=== PATIENT | female | born 1935 | race Caucasian/White ===

== ENCOUNTER 2024-06-29 17:09 | Inpatient (IN) | payer MEDICARE, OTHER ==
[~2024-06-29] VITALS: Ht 162.6 cm; Wt 68.0 kg
[2024-06-29 18:46] LABS: BASOPHILS # (AUTO) 0.1 K/UL (0.0-0.2); BASOPHILS % (AUTO) 0.9 % (0.0-2.0); EOSINOPHILS # (AUTO) 0.2 K/uL (0.0-0.7); EOSINOPHILS % (AUTO) 3.5 % (0.0-7.0); HEMATOCRIT 33.2 % (31.2-41.9); HEMOGLOBIN 10.9 g/dL (10.9-14.3); LYMPHOCYTES # (AUTO) 2.1 K/uL (0.8-4.8); LYMPHOCYTES % (AUTO) 36.2 % (20.5-51.5); MEAN CORPUSCULAR HEMOGLOBIN 28.8 uug (24.7-32.8); MEAN CORPUSCULAR HGB CONC 33 g/dL (32.3-35.6); MEAN CORPUSCULAR VOLUME 87.4 fL (75.5-95.3); MONOCYTES # (AUTO) 0.5 K/uL (0.1-1.30); MONOCYTES % (AUTO) 8.4 % (0.0-11.0); PLATELET COUNT (AUTO) 263 K/uL (179-408); RED CELL DISTRIBUTION WIDTH 15.2 % (12.3-17.7); WHITE BLOOD COUNT (AUTO) 5.9 K/uL (3.8-11.8)
[2024-06-29 18:57] LABS: *BILIRUBIN,URIN NEGATIVE (NEGATIVE); *BLOOD, URINE 1+ (NEGATIVE); *CLARITY,URINE SLIGHTLY CLOUDY (CLEAR); *COLOR,URINE LIGHT YELLOW (YELLOW); *KETONES,URINE NEGATIVE (NEGATIVE); *PROTEIN,URINE 1+ (NEGATIVE); *UROBILINOGEN,URINE 0.2 E.U./dl (NORMAL); LEUKOCYTE ESTERASE ,URINE 3+ (NEGATIVE); NITRITE, URINE POSITIVE (NEGATIVE); PH,URINE 6.5 (5.0-8.0); UGLUCOSE 2+ (NEGATIVE)
[2024-06-29 18:57] LABS: CALCIUM 9.4 mg/dL (8.5-10.1); CARBON DIOXIDE 25 mmol/L (21-32); CHLORIDE 111 mmol/L (98-107); CREATININE 1.3 mg/dL (0.6-1.3); DIFFERENTIAL COMMENT 1; GLUCOSE 119 mg/dL (74-106); POTASSIUM 3.9 mmol/L (3.5-5.1); SODIUM SERUM 145 mmol/L (136-145); UREA NITROGEN, BLOOD 29 mg/dL (7-18)
[2024-06-29 18:58] LABS: AMMONIA 10 umol/L (11-32)
[2024-06-29 19:02] LABS: ETHANOL < 3 MG/DL (0-10)
[2024-06-29 19:08] LABS: *AMPHETAMINE, URINE NEGATIVE (NEGATIVE); *BARBITURATE, URINE NEGATIVE (NEGATIVE); *BENZODIAZEPINE, URINE NEGATIVE (NEGATIVE); *CANNABINOID, URINE NEGATIVE (NEGATIVE); *COCCAINE, URINE NEGATIVE (NEGATIVE); *OPIATE, URINE NEGATIVE (NEGATIVE); *PHENCYCLIDINE SCREEN,URINE NEGATIVE (NEGATIVE); FENTANYL, URINE NEGATIVE (NEGATIVE)
[2024-06-29 19:11] LABS: WBC,URINE 80-100 /HPF (0-3)
[2024-06-29 19:11] LABS: THYROID STIMULATING HORMONE 5.574 mIU/mL (0.358-3.740)
[2024-06-29 19:12] LABS: ALANINE AMINOTRANSFERASE 22 U/L (14-59); ALBUMIN 3.2 g/dL (3.4-5.0); ALKALINE PHOSPHATASE 75 U/L (50-136); ASPARTATE AMINOTRANSFERASE 16 U/L (15-37); BILIRUBIN,DIRECT 0.1 mg/dL (0.0-0.2); BILIRUBIN,TOTAL 0.3 mg/dL (0.2-1.0); TOTAL PROTEIN, SERUM 7.1 g/dL (6.4-8.2)
[2024-06-29 19:12] LABS: BACTERIA,URINE MODERATE /HPF (NONE SEEN); SQUAMOUS EPITHELIAL CELL,UR FEW /HPF (NONE SEEN)
[2024-06-29 19:14] LABS: ACETAMINOPHEN < 2.0 ug/mL (10-30)
[2024-06-30] MEDS ORDERED: CEFTRIAXONE /D5W 50ML IVPB **ER PYXIS IV ONE (00:22)
[2024-06-30] MEDS: CEFTRIAXONE 1 G in IV DEXTROSE 5% 50 ML IV ONE (00:38)
[2024-06-30] MEDS ORDERED: REMEDY ESSENTIAL ZINC PASTE 113 GM TP PRN (05:00)
[2024-06-30] MEDS ORDERED: MAGNESIUM HYDROXIDE 30 ML LIQUID UDC PO PRN (05:00)
[2024-06-30] MEDS ORDERED: ONDANSETRON 4 MG/2 ML VIAL IV PRN (05:00)
[2024-06-30 06:44] VITALS: BP 175/75; TEMP 97.5; O2SAT 98
[2024-06-30 07:30] LABS: BASOPHILS % (AUTO) 0.9 % (0.0-2.0); EOSINOPHILS # (AUTO) 0.2 K/uL (0.0-0.7); EOSINOPHILS % (AUTO) 3.5 % (0.0-7.0); HEMATOCRIT 35.4 % (31.2-41.9); HEMOGLOBIN 11.5 g/dL (10.9-14.3); LYMPHOCYTES # (AUTO) 1.5 K/uL (0.8-4.8); LYMPHOCYTES % (AUTO) 28.6 % (20.5-51.5); MEAN CORPUSCULAR HEMOGLOBIN 28.8 uug (24.7-32.8); MEAN CORPUSCULAR HGB CONC 32 g/dL (32.3-35.6); MEAN CORPUSCULAR VOLUME 88.8 fL (75.5-95.3); MONOCYTES # (AUTO) 0.4 K/uL (0.1-1.30); MONOCYTES % (AUTO) 7.4 % (0.0-11.0); NEUTROPHILS # (AUTO) 3.1 K/uL (1.8-8.9); NEUTROPHILS % (AUTO) 59.6 % (38.5-71.5); PLATELET COUNT (AUTO) 216 K/uL (179-408); RED BLOOD CELL COUNT(AUTO) 3.99 MIL/uL (3.63-4.92); RED CELL DISTRIBUTION WIDTH 15.5 % (12.3-17.7); WHITE BLOOD COUNT (AUTO) 5.1 K/uL (3.8-11.8)
[2024-06-30 07:32] LABS: DIFFERENTIAL COMMENT 1
[2024-06-30 07:46] LABS: CALCIUM 9.3 mg/dL (8.5-10.1); CARBON DIOXIDE 25 mmol/L (21-32); CHLORIDE 110 mmol/L (98-107); CREATININE 1.1 mg/dL (0.6-1.3); GLUCOSE 102 mg/dL (74-106); POTASSIUM 3.8 mmol/L (3.5-5.1); SODIUM SERUM 144 mmol/L (136-145); UREA NITROGEN, BLOOD 27 mg/dL (7-18)
[2024-06-30 08:51] VITALS: BP 174/76; TEMP 97.9; O2SAT 98
[2024-06-30] MEDS: PANTOPRAZOLE SODIUM 40 MG VIAL IV SCH (09:00)
[2024-06-30] MEDS ORDERED: hydrALAZINE HCL 25 MG TABLET PO PRN (09:30)
[2024-06-30] MEDS: ACETAMINOPHEN 325 MG TABLET PO PRN (09:37)
[2024-06-30 11:11] VITALS: BP 150/85; TEMP 98.2; O2SAT 96
[2024-06-30 16:05] VITALS: BP 123/53; TEMP 97.8; O2SAT 98
[2024-06-30] MEDS ORDERED: LINA5TAB PO (16:19)
[2024-06-30] MEDS ORDERED: GUAI-789 PO (16:19)
[2024-06-30] MEDS ORDERED: TRIA15CR4 TP (16:20)
[2024-06-30] MEDS ORDERED: DICL100G31 TOP (16:22)
[2024-06-30] MEDS ORDERED: OLOP5DRO15 EACHEYE (16:22)
[2024-06-30] MEDS ORDERED: CETI1DRO EACHEYE (16:29)
[2024-06-30] MEDS ORDERED: FINE10TA PO (16:33)
[2024-06-30] MEDS ORDERED: MEMA5TAB42 PO (16:33)
[2024-06-30] MEDS ORDERED: ICOS1CAP PO (16:33)
[2024-06-30] MEDS ORDERED: LEVO88TA5 PO (16:37)
[2024-06-30] MEDS ORDERED: IRBE150T25 PO (16:37)
[2024-06-30] MEDS ORDERED: DAPA10TA PO (16:38)
[2024-06-30] MEDS ORDERED: GLIM1TAB PO (16:44)
[2024-06-30] MEDS ORDERED: MIRT-93 PO (16:44)
[2024-06-30] MEDS ORDERED: DEXL30CA3 PO (16:45)
[2024-06-30] MEDS ORDERED: PRAV40TA3 PO (16:45)
[2024-06-30] MEDS ORDERED: GUAIFENESIN SUGAR FREE 100 MG/5 ML UDC PO PRN (17:15)
[2024-06-30 19:00] VITALS: BP 116/59; TEMP 97.9; O2SAT 99
[2024-06-30] MEDS: ATORVASTATIN 10 MG TABLET PO SCH (19:11)
[2024-06-30] MEDS ORDERED: Icosapent Ethyl (Vascepa) 1 CAP) PO SCH (21:00)
[2024-06-30] MEDS: CEFTRIAXONE 1 G in IV DEXTROSE 5% 50 ML IV SCH (23:10)
[2024-07-01 06:00] VITALS: BP 112/73; TEMP 98.1; O2SAT 97
[2024-07-01 06:58] LABS: BASOPHILS # (AUTO) 0.1 K/UL (0.0-0.2); BASOPHILS % (AUTO) 1.1 % (0.0-2.0); EOSINOPHILS # (AUTO) 0.1 K/uL (0.0-0.7); EOSINOPHILS % (AUTO) 2.9 % (0.0-7.0); HEMATOCRIT 37.3 % (31.2-41.9); HEMOGLOBIN 12.6 g/dL (10.9-14.3); LYMPHOCYTES # (AUTO) 1.5 K/uL (0.8-4.8); LYMPHOCYTES % (AUTO) 30.6 % (20.5-51.5); MEAN CORPUSCULAR HEMOGLOBIN 29.4 uug (24.7-32.8); MEAN CORPUSCULAR HGB CONC 34 g/dL (32.3-35.6); MEAN CORPUSCULAR VOLUME 86.8 fL (75.5-95.3); MONOCYTES # (AUTO) 0.3 K/uL (0.1-1.30); MONOCYTES % (AUTO) 6.3 % (0.0-11.0); NEUTROPHILS # (AUTO) 2.8 K/uL (1.8-8.9); NEUTROPHILS % (AUTO) 59.1 % (38.5-71.5); PLATELET COUNT (AUTO) 327 K/uL (179-408); RED BLOOD CELL COUNT(AUTO) 4.29 MIL/uL (3.63-4.92); RED CELL DISTRIBUTION WIDTH 15.1 % (12.3-17.7); WHITE BLOOD COUNT (AUTO) 4.7 K/uL (3.8-11.8)
[2024-07-01 07:05] LABS: DIFFERENTIAL COMMENT 1
[2024-07-01 07:11] LABS: CARBON DIOXIDE 28 mmol/L (21-32); CHLORIDE 105 mmol/L (98-107); CREATININE 1.2 mg/dL (0.6-1.3); GLUCOSE 178 mg/dL (74-106); POTASSIUM 3.9 mmol/L (3.5-5.1); SODIUM SERUM 143 mmol/L (136-145); UREA NITROGEN, BLOOD 24 mg/dL (7-18)
[2024-07-01] MEDS: LINAGLIPTIN 5 MG TABLET PO SCH (08:51)
[2024-07-01] MEDS: MEMANTINE HCL 5 MG TABLET PO SCH (08:52)
[2024-07-01] MEDS: LOSARTAN POTASSIUM 50 MG TABLET PO SCH (08:52)
[2024-07-01] MEDS: DAPAGLIFLOZIN PROPANEDIOL 10 MG TABLET PO SCH (08:54)
[2024-07-01] MEDS: TRIAMCINOLONE ACET 0.1% CREAM 15 GM TUBE TP SCH (08:55)
[2024-07-01] MEDS ORDERED: FINERENONE PO SCH (09:00)
[2024-07-01] MEDS ORDERED: GLIMEPIRIDE PO SCH (09:00)
[2024-07-01] MEDS ORDERED: DICLOFENAC SODIUM TOP SCH (09:00)
[2024-07-01] MEDS: LEVOTHYROXINE SODIUM 88 MCG TABLET PO SCH (09:00)
[2024-07-01] MEDS: OLOPATADINE 0.1% OPHT DROP 5 ML BOTTLE EACHEYE SCH (09:00)
[2024-07-01] MEDS ORDERED: MIRTAZAPINE 15 MG TABLET PO SCH (09:00)
[2024-07-01] MEDS ORDERED: DEXLANSOPRAZOLE PO SCH (09:00)
[2024-07-01] MEDS: GLIMEPIRIDE 2 MG TABLET PO SCH (10:29)
[2024-07-01] MEDS: MIRTAZAPINE 15 MG TABLET PO SCH ×2 (10:29→20:58)
[2024-07-01 11:11] VITALS: BP 114/63; TEMP 98.5; O2SAT 100
[2024-07-01 15:31] VITALS: BP 138/55; TEMP 97.7; O2SAT 99
[2024-07-01 19:10] VITALS: BP 139/49; TEMP 98.3; O2SAT 98
[2024-07-01] MEDS: ATORVASTATIN 10 MG TABLET PO SCH (20:58)
[2024-07-02] MEDS: PANTOPRAZOLE SODIUM 40 MG TABLET.DR PO SCH (06:09)
[2024-07-02 06:26] VITALS: BP 129/75; TEMP 97.7; O2SAT 96
[2024-07-02 06:48] LABS: BASOPHILS # (AUTO) 0.1 K/UL (0.0-0.2); EOSINOPHILS # (AUTO) 0.2 K/uL (0.0-0.7); EOSINOPHILS % (AUTO) 3.4 % (0.0-7.0); HEMATOCRIT 37.9 % (31.2-41.9); HEMOGLOBIN 12.6 g/dL (10.9-14.3); LYMPHOCYTES # (AUTO) 1.9 K/uL (0.8-4.8); LYMPHOCYTES % (AUTO) 32.7 % (20.5-51.5); MEAN CORPUSCULAR HEMOGLOBIN 29.1 uug (24.7-32.8); MEAN CORPUSCULAR HGB CONC 33 g/dL (32.3-35.6); MEAN CORPUSCULAR VOLUME 87.5 fL (75.5-95.3); MONOCYTES # (AUTO) 0.4 K/uL (0.1-1.30); MONOCYTES % (AUTO) 7.6 % (0.0-11.0); NEUTROPHILS # (AUTO) 3.3 K/uL (1.8-8.9); NEUTROPHILS % (AUTO) 55.3 % (38.5-71.5); PLATELET COUNT (AUTO) 318 K/uL (179-408); RED BLOOD CELL COUNT(AUTO) 4.33 MIL/uL (3.63-4.92); WHITE BLOOD COUNT (AUTO) 5.9 K/uL (3.8-11.8)
[2024-07-02 07:01] LABS: DIFFERENTIAL COMMENT 1
[2024-07-02 07:05] LABS: CALCIUM 9.4 mg/dL (8.5-10.1); CARBON DIOXIDE 28 mmol/L (21-32); CHLORIDE 106 mmol/L (98-107); CREATININE 1.3 mg/dL (0.6-1.3); GLUCOSE 125 mg/dL (74-106); MAGNESIUM 1.7 mg/dL (1.8-2.4); PHOSPHOROUS 3.5 mg/dL (2.5-4.9); SODIUM SERUM 144 mmol/L (136-145); UREA NITROGEN, BLOOD 23 mg/dL (7-18)
[2024-07-02] MEDS: MAGNESIUM OXIDE 400 MG TABLET PO ONE (10:47)
[2024-07-02 11:35] VITALS: BP 103/54; TEMP 98.7; O2SAT 96
[2024-07-02 16:00] VITALS: BP 106/47; TEMP 98.8; O2SAT 99
[2024-07-02] MEDS: DICLOFENAC TOP SCH (16:45)
[2024-07-02] MEDS: VASCEPA PO SCH (16:45)
[2024-07-02] MEDS: [UNRECOGNIZED DRUG - OTHER] TOP SCH (16:45)
[2024-07-02] MEDS: MUPIROCIN 2% OINT 22 GM TUBE NS SCH (21:00)
[2024-07-02 21:23] VITALS: BP 137/62; TEMP 97.7; O2SAT 99
[2024-07-03 06:56] VITALS: BP 128/59; TEMP 97.7; O2SAT 97
[2024-07-03 06:59] LABS: BASOPHILS % (AUTO) 1.1 % (0.0-2.0); EOSINOPHILS # (AUTO) 0.2 K/uL (0.0-0.7); EOSINOPHILS % (AUTO) 4.1 % (0.0-7.0); HEMATOCRIT 33.4 % (31.2-41.9); HEMOGLOBIN 11.1 g/dL (10.9-14.3); LYMPHOCYTES # (AUTO) 1.5 K/uL (0.8-4.8); LYMPHOCYTES % (AUTO) 36.1 % (20.5-51.5); MEAN CORPUSCULAR HEMOGLOBIN 29.1 uug (24.7-32.8); MEAN CORPUSCULAR HGB CONC 33 g/dL (32.3-35.6); MEAN CORPUSCULAR VOLUME 87.2 fL (75.5-95.3); MONOCYTES # (AUTO) 0.4 K/uL (0.1-1.30); MONOCYTES % (AUTO) 9.2 % (0.0-11.0); NEUTROPHILS # (AUTO) 2.1 K/uL (1.8-8.9); NEUTROPHILS % (AUTO) 49.5 % (38.5-71.5); PLATELET COUNT (AUTO) 253 K/uL (179-408); RED BLOOD CELL COUNT(AUTO) 3.83 MIL/uL (3.63-4.92); WHITE BLOOD COUNT (AUTO) 4.2 K/uL (3.8-11.8)
[2024-07-03 07:06] LABS: CALCIUM 9.6 mg/dL (8.5-10.1); CARBON DIOXIDE 25 mmol/L (21-32); CHLORIDE 113 mmol/L (98-107); CREATININE 1.3 mg/dL (0.6-1.3); GLUCOSE 94 mg/dL (74-106); POTASSIUM 4.1 mmol/L (3.5-5.1); SODIUM SERUM 146 mmol/L (136-145); UREA NITROGEN, BLOOD 29 mg/dL (7-18)
[2024-07-03 07:19] LABS: DIFFERENTIAL COMMENT 1
[2024-07-03] MEDS: KERENDIA 10 MG PO SCH (10:16)
[2024-07-03 11:37] VITALS: BP 114/57; TEMP 98; O2SAT 98
[2024-07-03 15:53] VITALS: BP 125/53; TEMP 97.9; O2SAT 99
[2024-07-03] MEDS: CEphaleXIN 500 MG CAPSULE PO SCH (21:01)
[2024-07-03] MEDS: QUETIAPINE FUMARATE 25 MG TABLET PO SCH (21:01)
[2024-07-03 21:30] VITALS: BP 103/48; TEMP 98.5; O2SAT 99
[2024-07-04 07:16] VITALS: BP 156/65; TEMP 97.4; O2SAT 100
[2024-07-04] MEDS ORDERED: MIRT-93 PO (10:28)
[2024-07-04] MEDS ORDERED: CEPH500C2 PO (10:28)
[2024-07-04] MEDS ORDERED: HYDR-894 PO (10:28)
[2024-07-04] MEDS ORDERED: PANT40TA49 PO (10:28)
[2024-07-04] MEDS ORDERED: QUET25TA36 PO (10:28)
[2024-07-04] MEDS ORDERED: GLIM2TAB PO (10:28)
[2024-07-04] MEDS ORDERED: MUPI22OI2 NS (10:28)
[2024-07-04] MEDS ORDERED: GUAI100S9 PO (10:28)
[2024-07-04 11:13] VITALS: BP 145/71; TEMP 98.4; O2SAT 100
[2024-07-04 15:05] VITALS: BP 117/62; TEMP 98.3; O2SAT 96
[2024-07-04 16:40] VITALS: BP 117/62
== END 2024-07-04 17:39 | DRG 689 ==
LOC: ER 17:37 → UNDOADMIN 06-30 05:53 → MEDSURG3 06-30 05:53
PROVIDERS: ATTEND Nurse Practitioner Family
DX: N39.0 Urinary tract infection, site not specified (principal); G93.41 Metabolic encephalopathy; E44.1 Mild protein-calorie malnutrition; F03.92 Unspecified dementia, unspecified severity, with psychotic disturbance; F03.93 Unspecified dementia, unspecified severity, with mood disturbance; S00.12XA Contusion of left eyelid and periocular area, initial encounter; W19.XXXA Unspecified fall, initial encounter; Y92.89 Other specified places as the place of occurrence of the external cause; E86.0 Dehydration; F32.9 Major depressive disorder, single episode, unspecified; R29.6 Repeated falls; E03.9 Hypothyroidism, unspecified; E78.5 Hyperlipidemia, unspecified; E88.09 Other disorders of plasma-protein metabolism, not elsewhere classified; R79.89 Other specified abnormal findings of blood chemistry; Z91.148 Patient's other noncompliance with medication regimen for other reason; Z93.6 Other artificial openings of urinary tract status; I10 Essential (primary) hypertension; E11.9 Type 2 diabetes mellitus without complications; Z79.84 Long term (current) use of oral hypoglycemic drugs; Z79.899 Other long term (current) drug therapy; Z90.12 Acquired absence of left breast and nipple; Z85.038 Personal history of other malignant neoplasm of large intestine
CPT/HCPCS: 36415; 70450; 70486; 71045; 72125; 83605; 83735; 84100; 84443; 84484; 85025; 85730; 87040; 87086; A4663; G0378; G0480; J0696; J2470

== ENCOUNTER 2024-07-21 16:52 | Inpatient (IN) | payer MEDICARE, OTHER ==
[~2024-07-21] VITALS: Ht 162.6 cm; Wt 59.0 kg
[~2024-07-21 16:52] MED LIST: CEPH500C2 PO; CETI1DRO EACHEYE; DAPA10TA PO; DEXL30CA3 PO; DICL100G31 TOP; FINE10TA PO; GLIM1TAB PO; GLIM2TAB PO; GUAI100S9 PO; HYDR-894 PO; ICOS1CAP PO; IRBE150T25 PO; LEVO88TA5 PO; LINA5TAB PO; MEMA5TAB42 PO; MIRT-93 PO; MUPI22OI2 NS; OLOP5DRO15 EACHEYE; PANT40TA49 PO; PRAV40TA3 PO; QUET25TA36 PO
[2024-07-21] MEDS ORDERED: diphenhydrAMINE 50 MG/1 ML VIAL IV ONE (17:15)
[2024-07-21] MEDS ORDERED: HALOPERIDOL LACTATE 5 MG/1 ML VIAL IV ONE (17:15)
[2024-07-21] MEDS ORDERED: LORAZEPAM 2 MG/1 ML VIAL IV ONE (17:15)
[2024-07-21] MEDS ORDERED: diphenhydrAMINE 50 MG/1 ML VIAL ONE (17:16)
[2024-07-21] MEDS ORDERED: LORAZEPAM 2 MG/1 ML VIAL ONE (17:17)
[2024-07-21] MEDS ORDERED: HALOPERIDOL LACTATE 5 MG/1 ML VIAL ONE (17:17)
[2024-07-21] MEDS: LORAZEPAM 2 MG/1 ML VIAL IM ONE (17:26)
[2024-07-21] MEDS: diphenhydrAMINE 50 MG/1 ML VIAL IM ONE (17:26)
[2024-07-21] MEDS: HALOPERIDOL LACTATE 5 MG/1 ML VIAL IM ONE (17:26)
[2024-07-21 17:30] LABS: BASOPHILS % (AUTO) 0.2 % (0.0-2.0); EOSINOPHILS % (AUTO) 0.1 % (0.0-7.0); HEMOGLOBIN 11.5 g/dL (10.9-14.3); LYMPHOCYTES # (AUTO) 0.3 K/uL (0.8-4.8); LYMPHOCYTES % (AUTO) 2.7 % (20.5-51.5); MEAN CORPUSCULAR HEMOGLOBIN 28.7 uug (24.7-32.8); MEAN CORPUSCULAR HGB CONC 33 g/dL (32.3-35.6); MONOCYTES # (AUTO) 0.7 K/uL (0.1-1.30); MONOCYTES % (AUTO) 6.5 % (0.0-11.0); NEUTROPHILS % (AUTO) 90.5 % (38.5-71.5); PLATELET COUNT (AUTO) 190 K/uL (179-408); RED BLOOD CELL COUNT(AUTO) 4.02 MIL/uL (3.63-4.92); RED CELL DISTRIBUTION WIDTH 15.5 % (12.3-17.7)
[2024-07-21 17:31] LABS: DIFFERENTIAL COMMENT 1
[2024-07-21 17:41] LABS: CALCIUM 9.5 mg/dL (8.5-10.1); CARBON DIOXIDE 24 mmol/L (21-32); CHLORIDE 107 mmol/L (98-107); CREATININE 2.1 mg/dL (0.6-1.3); GLUCOSE 97 mg/dL (74-106); POTASSIUM 3.7 mmol/L (3.5-5.1); SODIUM SERUM 144 mmol/L (136-145); UREA NITROGEN, BLOOD 57 mg/dL (7-18)
[2024-07-21 17:43] LABS: AMMONIA < 10 umol/L (11-32)
[2024-07-21 17:48] LABS: ETHANOL < 3 MG/DL (0-10)
[2024-07-21 17:55] LABS: THYROID STIMULATING HORMONE 4.547 mIU/mL (0.358-3.740)
[2024-07-21 17:59] LABS: ALANINE AMINOTRANSFERASE 49 U/L (14-59); ALBUMIN 2.5 g/dL (3.4-5.0); ALKALINE PHOSPHATASE 253 U/L (50-136); ASPARTATE AMINOTRANSFERASE 69 U/L (15-37); BILIRUBIN,DIRECT 0.1 mg/dL (0.0-0.2); BILIRUBIN,TOTAL 0.4 mg/dL (0.2-1.0); TOTAL PROTEIN, SERUM 7.7 g/dL (6.4-8.2)
[2024-07-21 18:00] LABS: ACETAMINOPHEN < 2.0 ug/mL (10-30)
[2024-07-21] MEDS ORDERED: CEFTRIAXONE /D5W 50ML IVPB **ER PYXIS IV ONE (18:04)
[2024-07-21 18:10] LABS: *BILIRUBIN,URIN NEGATIVE (NEGATIVE); *BLOOD, URINE 2+ (NEGATIVE); *KETONES,URINE NEGATIVE (NEGATIVE); *PROTEIN,URINE 2+ (NEGATIVE); *UROBILINOGEN,URINE 0.2 E.U./dl (NORMAL); LEUKOCYTE ESTERASE ,URINE 1+ (NEGATIVE); NITRITE, URINE POSITIVE (NEGATIVE); UGLUCOSE TRACE (NEGATIVE)
[2024-07-21 18:11] LABS: *CLARITY,URINE SLIGHTLY CLOUDY (CLEAR); *COLOR,URINE LIGHT YELLOW (YELLOW)
[2024-07-21 18:18] LABS: BACTERIA,URINE MANY /HPF (NONE SEEN); SQUAMOUS EPITHELIAL CELL,UR FEW /HPF (NONE SEEN)
[2024-07-21] MEDS: CEFTRIAXONE 1 G in IV DEXTROSE 5% 50 ML IV ONE (18:20)
[2024-07-21 18:21] LABS: *AMPHETAMINE, URINE NEGATIVE (NEGATIVE); *BARBITURATE, URINE NEGATIVE (NEGATIVE); *BENZODIAZEPINE, URINE NEGATIVE (NEGATIVE); *CANNABINOID, URINE NEGATIVE (NEGATIVE); *COCCAINE, URINE NEGATIVE (NEGATIVE); *OPIATE, URINE NEGATIVE (NEGATIVE); *PHENCYCLIDINE SCREEN,URINE NEGATIVE (NEGATIVE); FENTANYL, URINE NEGATIVE (NEGATIVE)
[2024-07-21] MEDS: IV NORMAL SALINE 1000 ML BAG IV ONE (18:44)
[2024-07-21] MEDS ORDERED: DEXTROSE 50% 50 ML DISP.SYRIN ONE (19:23)
[2024-07-21] MEDS ORDERED: IV 10% DEXTROSE 1,000 ML IV ONE ×2 (19:23→23:17)
[2024-07-21] MEDS: DEXTROSE 50% 50 ML DISP.SYRIN IV ONE ×2 (19:26→23:56)
[2024-07-21] MEDS ORDERED: MISCELLANEOUS MED XX ONE (19:30)
[2024-07-21] MEDS ORDERED: MAGNESIUM HYDROXIDE 30 ML LIQUID UDC PO PRN (19:45)
[2024-07-21] MEDS ORDERED: IV D5/ 0.9% NACL 1,000 ML IV PRN (19:45)
[2024-07-21] MEDS ORDERED: IV 10% DEXTROSE 1,000 ML IV SCH (21:00)
[2024-07-21] MEDS: HEPARIN SODIUM,PORCINE 5,000 UNITS/ML VIAL SQ SCH (21:00)
[2024-07-21 22:57] LABS: CALCIUM 8.4 mg/dL (8.5-10.1); CARBON DIOXIDE 23 mmol/L (21-32); CHLORIDE 107 mmol/L (98-107); CREATININE 1.8 mg/dL (0.6-1.3); POTASSIUM 3.1 mmol/L (3.5-5.1); SODIUM SERUM 143 mmol/L (136-145); UREA NITROGEN, BLOOD 56 mg/dL (7-18)
[2024-07-21 22:59] LABS: GLUCOSE 41 mg/dL (74-106)
[2024-07-21] MEDS ORDERED: SODIUM CHLORIDE 4 MEQ/ML VIAL 154 MEQ in IV 10% DEXTROSE 1,000 ML IV PRN (23:00)
[2024-07-21 23:45] VITALS: TEMP 96.3; O2SAT 95
[2024-07-22] VITALS (10 sets, daily range): BP systolic 113–181; BP diastolic 70–82; TEMP 97.8–99.5; O2SAT 93–100
[2024-07-22] MEDS: IV 10% DEXTROSE 1,000 ML IV PRN (02:51)
[2024-07-22 06:45] LABS: BASOPHILS % (AUTO) 0.1 % (0.0-2.0); EOSINOPHILS % (AUTO) 0.5 % (0.0-7.0); HEMATOCRIT 33.8 % (31.2-41.9); HEMOGLOBIN 11.2 g/dL (10.9-14.3); LYMPHOCYTES # (AUTO) 0.6 K/uL (0.8-4.8); LYMPHOCYTES % (AUTO) 6.8 % (20.5-51.5); MEAN CORPUSCULAR HEMOGLOBIN 28.7 uug (24.7-32.8); MEAN CORPUSCULAR HGB CONC 33 g/dL (32.3-35.6); MEAN CORPUSCULAR VOLUME 86.8 fL (75.5-95.3); MONOCYTES % (AUTO) 11.3 % (0.0-11.0); NEUTROPHILS # (AUTO) 7.5 K/uL (1.8-8.9); NEUTROPHILS % (AUTO) 81.3 % (38.5-71.5); PLATELET COUNT (AUTO) 228 K/uL (179-408); RED BLOOD CELL COUNT(AUTO) 3.89 MIL/uL (3.63-4.92); RED CELL DISTRIBUTION WIDTH 15.6 % (12.3-17.7); WHITE BLOOD COUNT (AUTO) 9.2 K/uL (3.8-11.8)
[2024-07-22 07:00] LABS: DIFFERENTIAL COMMENT 1
[2024-07-22 07:05] LABS: CALCIUM 8.6 mg/dL (8.5-10.1); CARBON DIOXIDE 24 mmol/L (21-32); CHLORIDE 107 mmol/L (98-107); CHOLESTEROL 124 mg/dL (<200); CREATININE 1.8 mg/dL (0.6-1.3); GLUCOSE 126 mg/dL (74-106); HDL CHOLESTEROL 39 mg/dL (40-60); PHOSPHOROUS 2.6 mg/dL (2.5-4.9); SODIUM SERUM 142 mmol/L (136-145); TRIGLYCERIDES 124 MG/DL (30-150); UREA NITROGEN, BLOOD 49 mg/dL (7-18)
[2024-07-22] MEDS: IV NS 1000 ML 1,000 ML IV PRN (08:06)
[2024-07-22] MEDS: PANTOPRAZOLE SODIUM 40 MG VIAL IV SCH (08:06)
[2024-07-22] MEDS ORDERED: CEFTRIAXONE 1 G in IV DEXTROSE 5% 50 ML IV SCH (09:00)
[2024-07-22] MEDS ORDERED: LOSA50TA39 PO (09:55)
[2024-07-22] MEDS ORDERED: GABA-532 PO (09:55)
[2024-07-22] MEDS ORDERED: HYDR-894 PO (09:55)
[2024-07-22] MEDS ORDERED: GLIM2TAB31 PO (09:55)
[2024-07-22] MEDS ORDERED: MUPI22OI2 (10:20)
[2024-07-22] MEDS ORDERED: OMEG1CAP74 PO (10:20)
[2024-07-22] MEDS ORDERED: OMEP20TA5 PO (10:20)
[2024-07-22] MEDS ORDERED: TRIA15CR4 TP (11:21)
[2024-07-22] MEDS: POTASSIUM CHLORIDE 10 MEQ TAB.PRT.SR PO ONE (14:06)
[2024-07-22] MEDS: CEFTRIAXONE 1 G in IV DEXTROSE 5% 50 ML IV SCH (17:12)
[2024-07-23 04:20] LABS: *BILIRUBIN,URIN NEGATIVE (NEGATIVE); *BLOOD, URINE 2+ (NEGATIVE); *CLARITY,URINE CLEAR (CLEAR); *COLOR,URINE YELLOW (YELLOW); *KETONES,URINE NEGATIVE (NEGATIVE); *PROTEIN,URINE 2+ (NEGATIVE); *UROBILINOGEN,URINE 0.2 E.U./dl (NORMAL); LEUKOCYTE ESTERASE ,URINE TRACE (NEGATIVE); NITRITE, URINE NEGATIVE (NEGATIVE); UGLUCOSE 1+ (NEGATIVE)
[2024-07-23 04:22] LABS: BACTERIA,URINE FEW /HPF (NONE SEEN); MUCUS,URINE MODERATE /LPF (0-FEW); SQUAMOUS EPITHELIAL CELL,UR FEW /HPF (NONE SEEN)
[2024-07-23 04:31] LABS: *CREATININE,URINE < 13.0 mg/dL (30-125); *SODIUM RNDM,URINE 48 mmol/L (40-220); *URINE TOTAL PROTEIN RANDOM 10.5 mg/dL (<150/24HR)
[2024-07-23] MEDS: LORAZEPAM 1 MG TABLET PO ONE (05:48)
[2024-07-23 06:01] VITALS: BP 183/77; TEMP 97.9; O2SAT 17
[2024-07-23 07:11] LABS: ALANINE AMINOTRANSFERASE 33 U/L (14-59); ALKALINE PHOSPHATASE 165 U/L (50-136); ASPARTATE AMINOTRANSFERASE 24 U/L (15-37); BILIRUBIN,TOTAL 0.3 mg/dL (0.2-1.0); CALCIUM 9.2 mg/dL (8.5-10.1); CARBON DIOXIDE 23 mmol/L (21-32); CHLORIDE 111 mmol/L (98-107); CREATINE KINASE, TOTAL 102 U/L (26-192); CREATININE 1.8 mg/dL (0.6-1.3); GLUCOSE 177 mg/dL (74-106); MAGNESIUM 1.6 mg/dL (1.8-2.4); PHOSPHOROUS 2.4 mg/dL (2.5-4.9); POTASSIUM 3.8 mmol/L (3.5-5.1); SODIUM SERUM 144 mmol/L (136-145); TOTAL PROTEIN, SERUM 6.4 g/dL (6.4-8.2); UREA NITROGEN, BLOOD 37 mg/dL (7-18)
[2024-07-23 07:33] VITALS: BP 149/64; TEMP 98.2; O2SAT 100
[2024-07-23 08:00] VITALS: BP 157/67; TEMP 98.3; O2SAT 95
[2024-07-23 09:10] LABS: BASOPHILS % (AUTO) 0.5 % (0.0-2.0); DIFFERENTIAL COMMENT 0; EOSINOPHILS # (AUTO) 0.1 K/uL (0.0-0.7); EOSINOPHILS % (AUTO) 0.9 % (0.0-7.0); HEMATOCRIT 34.1 % (31.2-41.9); HEMOGLOBIN 11.1 g/dL (10.9-14.3); MEAN CORPUSCULAR HEMOGLOBIN 28.5 uug (24.7-32.8); MEAN CORPUSCULAR HGB CONC 32 g/dL (32.3-35.6); MONOCYTES # (AUTO) 1.1 K/uL (0.1-1.30); MONOCYTES % (AUTO) 14.9 % (0.0-11.0); NEUTROPHILS # (AUTO) 5.4 K/uL (1.8-8.9); NEUTROPHILS % (AUTO) 70.7 % (38.5-71.5); PLATELET COUNT (AUTO) 240 K/uL (179-408); RED BLOOD CELL COUNT(AUTO) 3.88 MIL/uL (3.63-4.92); WHITE BLOOD COUNT (AUTO) 7.7 K/uL (3.8-11.8)
[2024-07-23 09:19] LABS: CALCIUM 9.1 mg/dL (8.5-10.1); CARBON DIOXIDE 26 mmol/L (21-32); CHLORIDE 112 mmol/L (98-107); CREATININE 1.7 mg/dL (0.6-1.3); GLUCOSE 152 mg/dL (74-106); POTASSIUM 3.8 mmol/L (3.5-5.1); SODIUM SERUM 145 mmol/L (136-145); UREA NITROGEN, BLOOD 39 mg/dL (7-18)
[2024-07-23] MEDS ORDERED: LINAGLIPTIN 5 MG TABLET PO SCH (09:30)
[2024-07-23] MEDS ORDERED: DEXTROSE 50% 50 ML DISP.SYRIN IV PRN (09:45)
[2024-07-23] MEDS: MEMANTINE HCL 5 MG TABLET PO SCH (10:05)
[2024-07-23] MEDS: ATORVASTATIN 10 MG TABLET PO SCH (10:05)
[2024-07-23] MEDS: GABAPENTIN 100 MG CAPSULE PO SCH (10:05)
[2024-07-23 10:56] VITALS: BP 157/55; TEMP 98.4; O2SAT 95
[2024-07-23] MEDS: MAGNESIUM OXIDE 400 MG TABLET PO ONE (11:32)
[2024-07-23] MEDS: BLOOD SUGAR DIAGNOSTIC 1 EACH STRIP VI SCH (11:34)
[2024-07-23] MEDS: INSULIN REGULAR, HUMAN 1000 UNIT/10 ML VIAL SQ PRN (11:37)
[2024-07-23 14:59] VITALS: BP 130/58; TEMP 98.2; O2SAT 95
[2024-07-23] MEDS: TRIAMCINOLONE ACET 0.1% CREAM 15 GM TUBE TP SCH (16:41)
[2024-07-23] MEDS ORDERED: Medication Not On Formulary EA (Pravastatin Sodium 1 TAB) PO SCH (18:00)
[2024-07-23 19:00] VITALS: BP 156/68; TEMP 98.5; O2SAT 96
[2024-07-23] MEDS: MIRTAZAPINE 15 MG TABLET PO SCH (20:52)
[2024-07-24] MEDS: hydrALAZINE HCL 25 MG TABLET PO PRN (00:28)
[2024-07-24 04:00] VITALS: BP 123/75; TEMP 97.9; O2SAT 96
[2024-07-24] MEDS: PANTOPRAZOLE SODIUM 40 MG TABLET.DR PO SCH (06:23)
[2024-07-24] MEDS: LEVOTHYROXINE SODIUM 88 MCG TABLET PO SCH (06:23)
[2024-07-24 07:05] LABS: CALCIUM 9.2 mg/dL (8.5-10.1); CARBON DIOXIDE 23 mmol/L (21-32); CHLORIDE 113 mmol/L (98-107); CREATININE 1.4 mg/dL (0.6-1.3); GLUCOSE 118 mg/dL (74-106); POTASSIUM 3.6 mmol/L (3.5-5.1); SODIUM SERUM 148 mmol/L (136-145); UREA NITROGEN, BLOOD 34 mg/dL (7-18)
[2024-07-24 09:30] VITALS: BP 162/75; TEMP 98.4; O2SAT 99
[2024-07-24] MEDS: MUPIROCIN 2% OINT 22 GM TUBE NS SCH (09:56)
[2024-07-24] MEDS: ONDANSETRON 4 MG/2 ML VIAL IV PRN (12:49)
[2024-07-24 15:12] VITALS: BP 159/75; TEMP 98.4; O2SAT 93
[2024-07-24] MEDS: QUETIAPINE FUMARATE 25 MG TABLET PO PRN (17:06)
[2024-07-24 19:40] VITALS: BP 141/57; TEMP 98.9; O2SAT 98
[2024-07-25 06:07] VITALS: BP 158/68; TEMP 98.7; O2SAT 98
[2024-07-25 06:42] LABS: CALCIUM 9.3 mg/dL (8.5-10.1); CARBON DIOXIDE 24 mmol/L (21-32); CHLORIDE 119 mmol/L (98-107); CREATININE 1.5 mg/dL (0.6-1.3); GLUCOSE 151 mg/dL (74-106); POTASSIUM 3.5 mmol/L (3.5-5.1); SODIUM SERUM 155 mmol/L (136-145); UREA NITROGEN, BLOOD 51 mg/dL (7-18)
[2024-07-25] MEDS: IV D5W 1000ML 1,000 ML IV SCH (10:08)
[2024-07-25 11:43] VITALS: BP 149/52; TEMP 97.8; O2SAT 98
[2024-07-25 12:10] LABS: A/G RATIO 0.7 (0.7-1.7); ALBUMIN 2.3 g/dL (2.9-4.4); ALPHA-1-GLOBULIN 0.5 g/dL (0.0-0.4); ALPHA-2-GLOBULIN 1.1 g/dL (0.4-1.0); GAMMA GLOBULIN 0.8 g/dL (0.4-1.8); GLOBULIN, TOTAL 3.3 g/dL (2.2-3.9); M-SPIKE Not Observed g/dL (Not Observed); PROTEIN, TOTAL 5.6 g/dL (6.0-8.5)
[2024-07-25 15:50] VITALS: BP 141/60; TEMP 97.8; O2SAT 99
[2024-07-25] MEDS: GLUCERNA SHAKE 237 ML CAN PO SCH (16:39)
[2024-07-25 20:20] VITALS: BP 150/64; TEMP 98; O2SAT 98
[2024-07-26 01:06] LABS: PTH, INTACT 37 pg/mL (15-65)
[2024-07-26 06:04] VITALS: BP 152/63; TEMP 98; O2SAT 99
[2024-07-26 07:52] LABS: CALCIUM 8.8 mg/dL (8.5-10.1); CARBON DIOXIDE 24 mmol/L (21-32); CHLORIDE 114 mmol/L (98-107); CREATININE 1.3 mg/dL (0.6-1.3); GLUCOSE 131 mg/dL (74-106); MAGNESIUM 1.7 mg/dL (1.8-2.4); PHOSPHOROUS 2.9 mg/dL (2.5-4.9); POTASSIUM 3.1 mmol/L (3.5-5.1); SODIUM SERUM 150 mmol/L (136-145); UREA NITROGEN, BLOOD 41 mg/dL (7-18)
[2024-07-26 08:00] VITALS: BP 141/70; TEMP 97.6; O2SAT 98
[2024-07-26] MEDS: MAGNESIUM OXIDE 400 MG TABLET PO ONE (10:48)
[2024-07-26] MEDS: POTASSIUM CHLORIDE 20 MEQ POWDER PACKET PO ONE (10:48)
[2024-07-26 19:30] VITALS: BP 141/56; TEMP 97.6; O2SAT 99
[2024-07-26 19:50] VITALS: BP 141/56; TEMP 97.6; O2SAT 99
[2024-07-26] MEDS: CEphaleXIN 500 MG CAPSULE PO SCH (20:41)
[2024-07-26] MEDS: ACETAMINOPHEN 325 MG TABLET PO PRN (22:24)
[2024-07-27 06:06] VITALS: BP 127/54; TEMP 98; O2SAT 98
[2024-07-27 08:07] LABS: BASOPHILS % (AUTO) 0.5 % (0.0-2.0); DIFFERENTIAL COMMENT 0; EOSINOPHILS # (AUTO) 0.3 K/uL (0.0-0.7); EOSINOPHILS % (AUTO) 4.3 % (0.0-7.0); HEMATOCRIT 22.3 % (31.2-41.9); LYMPHOCYTES # (AUTO) 1.4 K/uL (0.8-4.8); MEAN CORPUSCULAR HEMOGLOBIN 28.4 uug (24.7-32.8); MEAN CORPUSCULAR HGB CONC 33 g/dL (32.3-35.6); MEAN CORPUSCULAR VOLUME 86.5 fL (75.5-95.3); MONOCYTES # (AUTO) 0.4 K/uL (0.1-1.30); MONOCYTES % (AUTO) 4.9 % (0.0-11.0); NEUTROPHILS # (AUTO) 5.8 K/uL (1.8-8.9); NEUTROPHILS % (AUTO) 72.3 % (38.5-71.5); PLATELET COUNT (AUTO) 287 K/uL (179-408); RED BLOOD CELL COUNT(AUTO) 2.57 MIL/uL (3.63-4.92); RED CELL DISTRIBUTION WIDTH 15.2 % (12.3-17.7)
[2024-07-27 08:08] LABS: CALCIUM 8.7 mg/dL (8.5-10.1); CARBON DIOXIDE 25 mmol/L (21-32); CHLORIDE 108 mmol/L (98-107); CREATININE 1.2 mg/dL (0.6-1.3); GLUCOSE 134 mg/dL (74-106); HEMOGLOBIN 7.3 g/dL (10.9-14.3); MAGNESIUM 1.7 mg/dL (1.8-2.4); PHOSPHOROUS 2.7 mg/dL (2.5-4.9); POTASSIUM 3.1 mmol/L (3.5-5.1); SODIUM SERUM 143 mmol/L (136-145); UREA NITROGEN, BLOOD 27 mg/dL (7-18)
[2024-07-27] MEDS: MAGNESIUM OXIDE 400 MG TABLET PO ONE (11:13)
[2024-07-27] MEDS: POTASSIUM CHLORIDE 20 MEQ TAB.PRT.SR PO ONE (11:13)
[2024-07-27 11:30] VITALS: BP 143/57; TEMP 98; O2SAT 100
[2024-07-27 16:00] VITALS: BP 147/53; TEMP 98; O2SAT 98
[2024-07-27 16:10] LABS: IRON, SERUM 25 ug/dL (50-175)
[2024-07-27 16:34] LABS: FERRITIN 68 ng/mL (8-252)
[2024-07-27] MEDS: SOD FERRIC GLUC COMPLX/SUCROSE 125 MG in IV NORMAL SALINE 100 ML IV SCH (19:56)
[2024-07-27 20:00] VITALS: BP 135/56; TEMP 98.4; O2SAT 99
[2024-07-27] MEDS: QUETIAPINE FUMARATE 25 MG TABLET PO SCH (22:26)
[2024-07-28] VITALS (7 sets, daily range): BP systolic 120–145; BP diastolic 45–57; TEMP 98–101; O2SAT 94–96
[2024-07-28 07:30] LABS: BASOPHILS % (AUTO) 0.4 % (0.0-2.0); EOSINOPHILS # (AUTO) 0.2 K/uL (0.0-0.7); EOSINOPHILS % (AUTO) 2.3 % (0.0-7.0); HEMATOCRIT 21.6 % (31.2-41.9); LYMPHOCYTES % (AUTO) 10.9 % (20.5-51.5); MEAN CORPUSCULAR HEMOGLOBIN 29.3 uug (24.7-32.8); MEAN CORPUSCULAR HGB CONC 34 g/dL (32.3-35.6); MEAN CORPUSCULAR VOLUME 85.9 fL (75.5-95.3); MONOCYTES # (AUTO) 0.5 K/uL (0.1-1.30); MONOCYTES % (AUTO) 5.1 % (0.0-11.0); NEUTROPHILS # (AUTO) 7.8 K/uL (1.8-8.9); NEUTROPHILS % (AUTO) 81.3 % (38.5-71.5); PLATELET COUNT (AUTO) 333 K/uL (179-408); RED BLOOD CELL COUNT(AUTO) 2.52 MIL/uL (3.63-4.92); RED CELL DISTRIBUTION WIDTH 15.2 % (12.3-17.7); WHITE BLOOD COUNT (AUTO) 9.5 K/uL (3.8-11.8)
[2024-07-28 07:40] LABS: DIFFERENTIAL COMMENT 1; HEMOGLOBIN 7.4 g/dL (10.9-14.3)
[2024-07-28 07:55] LABS: CALCIUM 8.7 mg/dL (8.5-10.1); CARBON DIOXIDE 27 mmol/L (21-32); CHLORIDE 108 mmol/L (98-107); CREATININE 1.2 mg/dL (0.6-1.3); GLUCOSE 121 mg/dL (74-106); MAGNESIUM 1.8 mg/dL (1.8-2.4); PHOSPHOROUS 2.6 mg/dL (2.5-4.9); POTASSIUM 4.1 mmol/L (3.5-5.1); SODIUM SERUM 143 mmol/L (136-145); UREA NITROGEN, BLOOD 24 mg/dL (7-18)
[2024-07-28 09:56] LABS: EOSINOPHILS % (MANUAL) 4 % (0-8); LYMPHOCYTES % (MANUAL) 13 % (20-40); MONOCYTES % (MANUAL) 4 % (2-10); MYELOCYTES % 2 % (0-0); NEUTROPHILS % (MANUAL) 77 % (42-75)
[2024-07-28 09:57] LABS: PLATELET ESTIMATE ADEQUATE
[2024-07-28] MEDS: DOCUSATE SODIUM 100 MG CAPSULE PO SCH (11:45)
[2024-07-29] VITALS (10 sets, daily range): BP systolic 116–142; BP diastolic 47–67; TEMP 98.1–99.2; O2SAT 96–99
[2024-07-29 07:03] LABS: BASOPHILS # (AUTO) 0.1 K/UL (0.0-0.2); BASOPHILS % (AUTO) 0.5 % (0.0-2.0); EOSINOPHILS # (AUTO) 0.2 K/uL (0.0-0.7); EOSINOPHILS % (AUTO) 1.4 % (0.0-7.0); LYMPHOCYTES # (AUTO) 1.2 K/uL (0.8-4.8); LYMPHOCYTES % (AUTO) 9.6 % (20.5-51.5); MEAN CORPUSCULAR HEMOGLOBIN 29.1 uug (24.7-32.8); MEAN CORPUSCULAR HGB CONC 33 g/dL (32.3-35.6); MEAN CORPUSCULAR VOLUME 87.3 fL (75.5-95.3); MONOCYTES # (AUTO) 0.6 K/uL (0.1-1.30); MONOCYTES % (AUTO) 4.9 % (0.0-11.0); NEUTROPHILS # (AUTO) 10.2 K/uL (1.8-8.9); NEUTROPHILS % (AUTO) 83.6 % (38.5-71.5); PLATELET COUNT (AUTO) 325 K/uL (179-408); RED CELL DISTRIBUTION WIDTH 15.3 % (12.3-17.7); WHITE BLOOD COUNT (AUTO) 12.2 K/uL (3.8-11.8)
[2024-07-29 07:19] LABS: DIFFERENTIAL COMMENT 1; HEMATOCRIT 20.8 % (31.2-41.9); RED BLOOD CELL COUNT(AUTO) 2.38 MIL/uL (3.63-4.92)
[2024-07-29 07:20] LABS: HEMOGLOBIN 6.9 g/dL (10.9-14.3)
[2024-07-29 08:41] LABS: CALCIUM 8.6 mg/dL (8.5-10.1); CARBON DIOXIDE 28 mmol/L (21-32); CHLORIDE 104 mmol/L (98-107); CREATININE 1.2 mg/dL (0.6-1.3); GLUCOSE 126 mg/dL (74-106); POTASSIUM 4.1 mmol/L (3.5-5.1); SODIUM SERUM 140 mmol/L (136-145); UREA NITROGEN, BLOOD 24 mg/dL (7-18)
[2024-07-29 13:56] LABS: ANISOCYTOSIS 1+; BAND % (MANUAL) 6 % (0-10); EOSINOPHILS % (MANUAL) 1 % (0-8); LYMPHOCYTES % (MANUAL) 10 % (20-40); MONOCYTES % (MANUAL) 4 % (2-10); NEUTROPHILS % (MANUAL) 79 % (42-75); PLATELET ESTIMATE ADEQUATE
[2024-07-29 20:53] LABS: *OCCULT BLOOD STOOL POSITIVE (NEGATIVE)
[2024-07-30 06:00] VITALS: BP 125/53; TEMP 98.2; O2SAT 96
[2024-07-30 07:03] LABS: BASOPHILS # (AUTO) 0.1 K/UL (0.0-0.2); BASOPHILS % (AUTO) 0.5 % (0.0-2.0); EOSINOPHILS # (AUTO) 0.2 K/uL (0.0-0.7); EOSINOPHILS % (AUTO) 1.5 % (0.0-7.0); HEMATOCRIT 25.2 % (31.2-41.9); HEMOGLOBIN 8.4 g/dL (10.9-14.3); LYMPHOCYTES # (AUTO) 1.5 K/uL (0.8-4.8); MEAN CORPUSCULAR HEMOGLOBIN 28.3 uug (24.7-32.8); MEAN CORPUSCULAR HGB CONC 33 g/dL (32.3-35.6); MONOCYTES # (AUTO) 0.7 K/uL (0.1-1.30); MONOCYTES % (AUTO) 5.6 % (0.0-11.0); NEUTROPHILS # (AUTO) 10.2 K/uL (1.8-8.9); NEUTROPHILS % (AUTO) 80.4 % (38.5-71.5); PLATELET COUNT (AUTO) 339 K/uL (179-408); RED BLOOD CELL COUNT(AUTO) 2.96 MIL/uL (3.63-4.92); RED CELL DISTRIBUTION WIDTH 16.5 % (12.3-17.7); WHITE BLOOD COUNT (AUTO) 12.7 K/uL (3.8-11.8)
[2024-07-30 07:07] VITALS: BP 118/47; TEMP 97.8; O2SAT 99
[2024-07-30 07:08] LABS: DIFFERENTIAL COMMENT 1
[2024-07-30 07:13] LABS: CALCIUM 8.7 mg/dL (8.5-10.1); CARBON DIOXIDE 27 mmol/L (21-32); CHLORIDE 103 mmol/L (98-107); CREATININE 1.2 mg/dL (0.6-1.3); GLUCOSE 109 mg/dL (74-106); MAGNESIUM 1.7 mg/dL (1.8-2.4); PHOSPHOROUS 2.6 mg/dL (2.5-4.9); POTASSIUM 4.1 mmol/L (3.5-5.1); SODIUM SERUM 138 mmol/L (136-145); UREA NITROGEN, BLOOD 20 mg/dL (7-18)
[2024-07-30] MEDS: PANTOPRAZOLE SODIUM 40 MG VIAL IV SCH (08:07)
[2024-07-30] MEDS: MAGNESIUM OXIDE 400 MG TABLET PO ONE (10:22)
[2024-07-30 11:49] VITALS: BP 124/54; TEMP 99.8; O2SAT 99
[2024-07-30 16:01] VITALS: BP 128/46; TEMP 100.5; O2SAT 96
[2024-07-30 19:50] VITALS: BP 118/46; TEMP 97.9; O2SAT 95
[2024-07-31 05:57] VITALS: BP 131/58; TEMP 98.7; O2SAT 94
[2024-07-31 07:18] LABS: BASOPHILS # (AUTO) 0.1 K/UL (0.0-0.2); BASOPHILS % (AUTO) 0.5 % (0.0-2.0); DIFFERENTIAL COMMENT 0; EOSINOPHILS # (AUTO) 0.2 K/uL (0.0-0.7); EOSINOPHILS % (AUTO) 1.6 % (0.0-7.0); HEMATOCRIT 24.5 % (31.2-41.9); HEMOGLOBIN 8.2 g/dL (10.9-14.3); LYMPHOCYTES # (AUTO) 1.1 K/uL (0.8-4.8); LYMPHOCYTES % (AUTO) 9.8 % (20.5-51.5); MEAN CORPUSCULAR HEMOGLOBIN 28.7 uug (24.7-32.8); MEAN CORPUSCULAR HGB CONC 34 g/dL (32.3-35.6); MEAN CORPUSCULAR VOLUME 85.7 fL (75.5-95.3); MONOCYTES # (AUTO) 0.7 K/uL (0.1-1.30); MONOCYTES % (AUTO) 5.9 % (0.0-11.0); NEUTROPHILS # (AUTO) 9.2 K/uL (1.8-8.9); NEUTROPHILS % (AUTO) 82.2 % (38.5-71.5); PLATELET COUNT (AUTO) 331 K/uL (179-408); RED BLOOD CELL COUNT(AUTO) 2.86 MIL/uL (3.63-4.92); RED CELL DISTRIBUTION WIDTH 16.3 % (12.3-17.7); WHITE BLOOD COUNT (AUTO) 11.2 K/uL (3.8-11.8)
[2024-07-31 07:21] LABS: CALCIUM 8.3 mg/dL (8.5-10.1); CARBON DIOXIDE 27 mmol/L (21-32); CHLORIDE 103 mmol/L (98-107); CREATININE 1.3 mg/dL (0.6-1.3); GLUCOSE 124 mg/dL (74-106); MAGNESIUM 1.6 mg/dL (1.8-2.4); PHOSPHOROUS 2.8 mg/dL (2.5-4.9); POTASSIUM 4.1 mmol/L (3.5-5.1); SODIUM SERUM 139 mmol/L (136-145); UREA NITROGEN, BLOOD 23 mg/dL (7-18)
[2024-07-31] MEDS ORDERED: QUET25TA36 PO (10:53)
[2024-07-31] MEDS ORDERED: FERR220S16 PO (10:57)
[2024-07-31] MEDS: MAGNESIUM OXIDE 400 MG TABLET PO ONE (11:35)
[2024-07-31 11:38] VITALS: BP 110/45; TEMP 99.3; O2SAT 98
[2024-07-31 15:52] VITALS: BP 125/55; TEMP 98.3; O2SAT 95
== END 2024-07-31 17:48 | DRG 637 ==
LOC: ER 17:14 → TELE3 20:44 → MEDSURG3 07-24 09:20
PROVIDERS: ADMIT Nurse Practitioner Acute Care; ATTEND Nurse Practitioner Acute Care
PROC: 05HC33Z Insertion of Infusion Device into Left Basilic Vein, Percutaneous Approach (ICD-10-PCS; principal; 2024-07-23)
PROC: 30233N1 Transfusion of Nonautologous Red Blood Cells into Peripheral Vein, Percutaneous Approach (ICD-10-PCS; 2024-07-23)
DX: E11.649 Type 2 diabetes mellitus with hypoglycemia without coma (principal); G93.41 Metabolic encephalopathy; N13.6 Pyonephrosis; F02.83 Dementia in other diseases classified elsewhere, unspecified severity, with mood disturbance; F02.818 Dementia in other diseases classified elsewhere, unspecified severity, with other behavioral disturbance; E87.0 Hyperosmolality and hypernatremia; N17.0 Acute kidney failure with tubular necrosis; T38.3X5A Adverse effect of insulin and oral hypoglycemic [antidiabetic] drugs, initial encounter; Y92.129 Unspecified place in nursing home as the place of occurrence of the external cause; Z22.322 Carrier or suspected carrier of Methicillin resistant Staphylococcus aureus; D72.823 Leukemoid reaction; D50.9 Iron deficiency anemia, unspecified; Z66 Do not resuscitate; E83.42 Hypomagnesemia; E78.5 Hyperlipidemia, unspecified; G30.9 Alzheimer's disease, unspecified; F32.9 Major depressive disorder, single episode, unspecified; I12.9 Hypertensive chronic kidney disease with stage 1 through stage 4 chronic kidney disease, or unspecified chronic kidney disease; E11.22 Type 2 diabetes mellitus with diabetic chronic kidney disease; N18.9 Chronic kidney disease, unspecified; E87.6 Hypokalemia; J32.0 Chronic maxillary sinusitis; K80.20 Calculus of gallbladder without cholecystitis without obstruction; N20.0 Calculus of kidney; D25.9 Leiomyoma of uterus, unspecified; E86.0 Dehydration; E03.9 Hypothyroidism, unspecified; Z93.3 Colostomy status; Z79.84 Long term (current) use of oral hypoglycemic drugs; Z90.5 Acquired absence of kidney; Z78.1 Physical restraint status; Z79.899 Other long term (current) drug therapy; Z79.890 Hormone replacement therapy
CPT/HCPCS: 36415; 70450; 71045; 72125; 76770; 82746; 83550; 83605; 83735; 83921; 83970; 84100; 84155; 84165; 84300; 84443; 84484; 85025; 85730; 86850; 86900; 86901; 86920; 87040; 87086; A4606; A4663; C1758; G0378; G0480; J0696; J1200; J1630; J1644; J1815; J2060; J2405; J2470; J2916; J3490; J7040; J7042; J7070; J7131; P9016